=== PATIENT | male | born 1990 | race Two or more races ===

== ENCOUNTER 2024-05-30 14:50 | Emergency (ER) | payer OTHER ==
[~2024-05-30] VITALS: Ht 170.2 cm; Wt 65.8 kg
[2024-05-30 15:48] VITALS: BP 111/96; O2SAT 100
[2024-05-30] MEDS ORDERED: LIDOCAINE HCL 1% 10ML VIAL ONE (17:08)
[2024-05-30] MEDS ORDERED: DIPHTH,PERTUSS(ACELL),TET VAC 0.5 ML SYRINGE IM ONE (17:08)
[2024-05-30] MEDS ORDERED: LIDOCAINE HCL 1% 10ML VIAL IJ ONE (17:15)
[2024-05-30] MEDS ORDERED: TETANUS & DIPHTHERIA TOX,ADULT 0.5 ML VIAL IM ONE (17:15)
== END 2024-05-30 17:36 | disposition home or self-care (01) ==
LOC: ER 14:53
DX: S61.222A Laceration with foreign body of right middle finger without damage to nail, initial encounter (principal); W26.0XXA Contact with knife, initial encounter; Y93.G3 Activity, cooking and baking; Y92.090 Kitchen in other non-institutional residence as the place of occurrence of the external cause
CPT/HCPCS: 12002; 90471; 90714; J1670